=== PATIENT | male | born 1985 | race Caucasian/White ===

== ENCOUNTER 2024-09-07 19:53 | Emergency (ER) | payer MEDICAID, SELFPAY ==
[2024-09-07 19:58] VITALS: BP 196/113
[2024-09-07 21:23] LABS: % Basophils 0.7 % (0-2); % Eosinophils 2.2 % (0-6); % Immature Granulocytes 0.3 % (0-0.5); % Lymphocytes 18.3 % (20.5-51.1); % Monocytes 10.4 % (1.7-9.3); % Neutrophils 68.1 % (42.2-75.2); Absolute Basophils 0.1 10^3/uL (0-0.2); Absolute Eosinophils 0.3 10^3/uL (0-0.7); Absolute Lymphocytes 2.4 10^3/uL (1.2-3.4); Absolute Monocytes 1.3 10^3/uL (0.1-0.6); Absolute Neutrophils 8.8 10^3/uL (1.4-6.5); Hematocrit 42.7 % (39.0-52.0); Hemoglobin 14.7 g/dL (13.0-18.0); Mean Corp Hgb Conc. 34.4 g/dL (33.0-37.0); Mean Corpuscular Hgb 29.3 pg (27.0-31.0); Mean Corpuscular Volume 85.1 fL (80.0-94.0); Mean Platelet Volume 10.6 fL (7.4-10.4); Nucleated Red Blood Cells % 0 % (-); Platelet Count 265 10^3/uL (130-400); Red Blood Cell Count 5.02 10^6/uL (4.70-6.10); Red Cell Dist. Width 13.2 % (11.5-14.5); Urine Albumin Negative (Neg - Trace); Urine Bilirubin Negative (Negative); Urine Character Clear (Clear); Urine Color Yellow; Urine Glucose Negative (Negative); Urine Ketone Negative (Negative); Urine Leukocyte Negative (Negative); Urine Nitrite Negative (Negative); Urine Occult Blood Negative (Negative); Urine Urobilinogen 1+ (Neg - 1+); White Blood Cell Count 12.9 10^3/uL (4.8-10.8)
[2024-09-07 21:37] LABS: ALT (SGPT) 19 U/L (0-50); AST (SGOT) 18 U/L (17-59); Albumin 4.1 g/dl (3.5-5.0); Alkaline Phosphatase 93 U/L (38-126); Blood Urea Nitrogen 22 mg/dl (9-20); Calcium 9.6 mg/dl (8.4-10.2); Carbon Dioxide 28 mmol/L (22-30); Chloride 104 mmol/L (98-107); Glucose 108 mg/dl (70-99); Potassium 4.3 mmol/L (3.5-5.1); Sodium 140 mmol/L (135-145); Total Bilirubin 0.8 mg/dl (0.2-1.3); Total Protein 7.4 g/dl (6.3-8.2); eGFR > 60.00
--- NOTE | 2024-09-07 22:50 | ED.GENMED ---
History of Present Illness
<AMANDA Peterson - Last Filed: 09/07/24 22:57>
General
Chief Complaint: Flank Pain
Source: patient
Time Seen by Provider: 09/07/24 22:38
History of Present Illness
History of Present Illness:
Pt is a 38 yo M with no known PMH who presents to the ER c/o left flank pain x 6 days. Patient explains that this pain started on Monday and has persisted. He went to urgent care on and had a UA which was clear and an abdominal X-ray that
he was told showed kidney stones, but was unable to characterize size or number of stones. He was given a script for tamsulosin and was told to manage pain with ibuprofen. Overall he notes the pain has continued but doesn't bother him much, he is
indifferent to continue pain medications. He says his last dose of Ibuprofen was at 19:00 tonight. He is hypertensive on presentation but denies a prior diagnosis or use of antihypertensive medications. He denies hematuria, polyuria, dysuria,
nausea, vomiting, or other associated symptoms.
Review of Systems
<AMANDA Peterson - Last Filed: 09/07/24 22:57>
Review of Systems
All Other Systems: ROS reviewed and negative except as documented in HPI and ROS
Phy Exam
<AMANDA Peterson - Last Filed: 09/07/24 22:57>
General Physical Exam
General Presentation: well appearing and no apparent distress
General Skin: warm and dry
General Habitus: normal
General Mental: alert
Cardiovascular Exam
Cardiovascular Exam: regular rate/rhythm
Heart Sounds: normal
Pulmonary Exam
Pulmonary Exam: lungs clear and no respiratory distress
Gastrointestinal Exam
Gastrointestinal Exam: normal bowel sounds, non tender and no cva tenderness
Course
<AMANDA Peterson - Last Filed: 09/07/24 22:57>
Orders/Labs/Results
Orders:
Orders
09/07/24 21:15
Complete Blood Count/With Diff Urgent
Comprehensive Metabolic Panel Urgent
Urinalysis Reflex To Culture Urgent
Date Specimen was Collected: 09/07/24
Time Specimen was Collected: 21:02
09/07/24 22:50
CT Abd/pel Without Iv Or Oral Urgent
Comment:
Reason For Exam: L flank pain
09/08/24 00:50
Oxycodone/Acetaminophen [Percocet 5/325] 2 tablet PO NOW STA
Abnormal Lab Results
09/07/24
21:15
WBC 12.9 H 10^3/uL
(4.8-10.8)
MPV 10.6 H fL
(7.4-10.4)
Absolute Neuts (auto) 8.8 H 10^3/uL
(1.4-6.5)
Absolute Monos (auto) 1.3 H 10^3/uL
(0.1-0.6)
Lymphocytes % 18.3 L %
(20.5-51.1)
Monocytes % 10.4 H %
(1.7-9.3)
BUN 22 H mg/dl
(9-20)
Creatinine 1.5 H mg/dL
(0.7-1.3)
Glucose 108 H mg/dl
(70-99)
09/07/24 21:15
09/07/24 21:15
Vital Signs
Initial and Last Documented VS:
Initial Vital Signs
Temp Pulse Resp BP Pulse Ox
98.6 F 87 18 196/113 95
09/07/24 19:58 09/07/24 19:58 09/07/24 19:58 09/07/24 19:58 09/07/24 19:58
Last Documented Vital Signs
Temp Pulse Resp BP Pulse Ox
98.6 F 87 18 188/95 96
09/07/24 19:58 09/07/24 19:58 09/07/24 19:58 09/07/24 22:57 09/07/24 23:36
<Blossom Morales, DO - Last Filed: 09/08/24 00:59>
Orders/Labs/Results
Orders:
Orders
09/07/24 21:15
Complete Blood Count/With Diff Urgent
Comprehensive Metabolic Panel Urgent
Urinalysis Reflex To Culture Urgent
Date Specimen was Collected: 09/07/24
Time Specimen was Collected: 21:02
09/07/24 22:50
CT Abd/pel Without Iv Or Oral Urgent
Comment:
Reason For Exam: L flank pain
09/08/24 00:50
Oxycodone/Acetaminophen [Percocet 5/325] 2 tablet PO NOW STA
Abnormal Lab Results
09/07/24
21:15
WBC 12.9 H 10^3/uL
(4.8-10.8)
MPV 10.6 H fL
(7.4-10.4)
Absolute Neuts (auto) 8.8 H 10^3/uL
(1.4-6.5)
Absolute Monos (auto) 1.3 H 10^3/uL
(0.1-0.6)
Lymphocytes % 18.3 L %
(20.5-51.1)
Monocytes % 10.4 H %
(1.7-9.3)
BUN 22 H mg/dl
(9-20)
Creatinine 1.5 H mg/dL
(0.7-1.3)
Glucose 108 H mg/dl
(70-99)
09/07/24 21:15
09/07/24 21:15
Vital Signs
Initial and Last Documented VS:
Initial Vital Signs
Temp Pulse Resp BP Pulse Ox
98.6 F 87 18 196/113 95
09/07/24 19:58 09/07/24 19:58 09/07/24 19:58 09/07/24 19:58 09/07/24 19:58
Last Documented Vital Signs
Temp Pulse Resp BP Pulse Ox
98.6 F 87 18 188/95 96
09/07/24 19:58 09/07/24 19:58 09/07/24 19:58 09/07/24 22:57 09/07/24 23:36
<Blossom Morales DO - Last Filed: 09/08/24 00:59>
*Radiology
Radiology exam reviewed: radiology read reviewed
*Pulse Oximetry
Patient hypoxic: no
*Critical Care Note
Total Time (30-74mins, 75-104mins- exclusive of procedures): Not Applicable
ED Attending Note
<AMANDA Peterson - Last Filed: 09/07/24 22:57>
-
Portions of this chart may have been created with voice recognition software.� Occasional wrong word or��sound alike� substitutions may have occurred due to the inherent limitations of voice recognition software.
<Blossom Morales DO - Last Filed: 09/08/24 00:59>
ED Attending Note
Patient seen and examined by attending physician: Yes
I performed the substantive portion of visit, reviewed & personally made and approve the management plan that is documented in note by myself or ANTHONY.: Yes
ED Attending Note:
This is a 38-year-old gentleman with no reported past medical history other than obesity presents with 5-day history of left flank pain. Left flank pain has been intermittent, temporized with NSAIDs but much more persistent since yesterday and
worsening in intensity. No history of similar episodes of left flank pain. Left flank pain does not radiate, no other associated symptoms. He denies diaphoresis nor restlessness, denies dysuria and urgency and or hematuria, denies cough no
shortness of breath, denies fever no chills, no diarrhea no constipation. Pain is not worsened with movement. He has not had a rash.
He was evaluated at urgent care 2 days ago and had urine dip that was trace positive for blood and KUB film concerning for kidney stones. Placed on Flomax. Patient admits that he is worried with persistent pain and concerned that he has a kidney
stone that he is not able to pass.
He has been taking ibuprofen 600 mg, 3 times today, once or twice yesterday. He admits to moderate improvement in pain with ibuprofen.
Currently pain is mild.
He takes no medicines on a daily basis.
38-year-old obese gentleman appears his stated age, bright and alert, pleasant, appears in no acute distress.
Oral mucosa is moist.
Neck is supple, nontender. No adenopathy.
Heart is regular rate and rhythm. No murmur no rub.
Lungs are clear to auscultation, respirations are easy and nonlabored. No palpable chest wall tenderness.
Abdomen is rotund, soft without appreciable tenderness. No CVA tenderness. No rash. There is a soft easily reducible, nontender umbilical hernia.
Extremities without clubbing nor cyanosis nor edema. Peripheral pulses are full and equal. Nontender.
Skin is warm and dry, normal color, good turgor. No rash.
No focal neurodeficits. Gait is steady.
Concern for renal colic, musculoskeletal pain, less likely pyelonephritis. Also less likely prodromal neuralgia of herpes zoster.
Patient noted to be significantly hypertensive, hypertension is improving. Also noted to be hypertensive that urgent care at 160/90 and upon review of records hypertension noted during initial PCP visit October 2022. During that initial visit with
PCP in October he was prescribed hydrochlorothiazide for hypertension and lower extremity edema. Labs were ordered but never followed through and patient admits to neglecting follow-up with PCP.
Labs reveal mildly elevated white blood cell count, normal H&H, mildly elevated BUN/creatinine of 22/1.5.
No old labs to compare. Renal insufficiency may be chronic in nature versus acute related to recent NSAID use, other consideration is related to renal obstruction.
Urinalysis is unremarkable.
Patient offered pain medication which he declines. States pain is currently mild.
Will check CT abdomen pelvis without contrast.
00:50
CT shows 9 mm stone at left UPJ with moderate hydronephrosis.
Case discussed with urology. As patient has no signs of infection, no indication for urgent surgical removal and would only require acute hospitalization for pain control.
Patient comfortable with discharge to home with prescription for Percocet for as needed pain. With elevated creatinine recommend he discontinue NSAIDs.
Dr. Santos plans to add the patient to OR schedule on Monday, September 11.
Patient instructed to call the urologist office MondaySeptember 10.
Strict return precautions discussed.
Discharge Plan
Departure
Patient Disposition: Home (Routine Discharge)
Date of Disposition: 09/08/24
Time of Disposition: 00:50
Patient with high blood pressure during this ER visit?: Yes
Condition: Good
Discharge Problem:
Calculus of proximal left ureter, Creatinine elevation
Instructions: Kidney Stones (DC), BLOOD PRESSURE, Narcotic Pain Medication
Prescriptions:
New
oxycodone-acetaminophen [Percocet] 5-325 mg Tablet
1 tab PO Q6HPRN PRN (Reason: pain) Qty: 12 0RF
ondansetron 4 mg tablet,disintegrating
4 mg PO QID PRN (Reason: nausea and vomiting) Qty: 20 0RF
Referrals:
Antoine Santos MD [Active] - Next open appointment (For OR Monday09/11/24. )
Filiberto Hou MD [Family Provider] -
Activity Restrictions/Additional Instructions:
Stay well-hydrated on a daily basis.
Avoid NSAIDs such as Motrin, Advil, ibuprofen, Aleve.
You have been prescribed Percocet for as needed pain. You may take Tylenol for as needed mild pain.
Call Dr. Santos's office Monday to discuss follow-up and planned surgery September 11.
If pain becomes unbearable or if you develop a fever, prompt return to the ER for further evaluation.
Interventions
Interventions:
*Risk Screen - Suicide Last Done: 09/07/24 19:57
*General Assessment Last Done: 09/07/24 19:57
*Neglect/Abuse Screening Last Done: 09/07/24 19:57
*ED- Fall Risk Assessment Last Done: 09/07/24 22:56
*ED COVID-19 Vaccine History Last Done: 09/07/24 19:57
IO-Owxuic-Dtjwyccbyb Assessment Last Done: 09/07/24 22:56
ED-Male Genitourinary Assessment Last Done: 09/07/24 22:56
Discharge Date and Time
Print Language: SERBIAN
[2024-09-07 22:57] VITALS: BP 188/95
[2024-09-07 22:59] VITALS: BMI 39.9
[2024-09-08] MEDS: PERCOCET 5/325 2 TABLET PO (00:55)
== END 2024-09-08 01:05 | disposition home or self-care (01) ==
LOC: EMR 19:53
PROVIDERS: Emergency Medicine; EMERGENCY PHYSICIAN Emergency Medicine; FAMILY PHYSICIAN Internal Medicine
DX: N20.2 Calculus of kidney with calculus of ureter (principal); R79.89 Other specified abnormal findings of blood chemistry; I10 Essential (primary) hypertension
CPT/HCPCS: 99284; 74176; 80053; 81003; 85025

== ENCOUNTER 2024-09-11 06:25 | Day surgery (SDC) | payer OTHER, SELFPAY ==
[2024-09-11 11:56] VITALS: BMI 41.2
[2024-09-11 11:57] VITALS: BP 199/116
[2024-09-11 12:09] VITALS: BP 184/119
[2024-09-11] MEDS: NORMOSOL-R/PLASMALYTE-A 1000 IV (12:18)
[2024-09-11] MEDS: APRESOLINE 5 MG IV (12:30)
[2024-09-11 15:35] VITALS: BP 197/111
[2024-09-11 15:55] VITALS: BP 173/99
[2024-09-11 16:10] VITALS: BP 192/111
--- NOTE | 2024-09-11 16:19 | DOWNTIME ---
There was a [employer] Downtime on 09/11/2024 from 1230 to 09/11/2024 at 1550. Downtime documentation of patient's care, including medication administrations, has been reconciled in the electronic record per guidelines. Refer to the
patient's paper chart under the miscellaneous tab to see printed paper medication records and downtime forms.
== END 2024-09-11 16:16 | disposition home or self-care (01) ==
LOC: SDS 06:25
PROVIDERS: ATTENDING PHYSICIAN Specialist
DX: N20.1 Calculus of ureter (principal)
CPT/HCPCS: 52356; 74018; 76000